=== PATIENT | female | born 1940 | race Caucasian/White ===

== ENCOUNTER 2022-02-11 07:23 | Emergency (ER) | payer MEDICARE ==
[~2022-02-11] VITALS: Ht 160 cm; Wt 62.3 kg
[~2022-02-11 07:23] MED LIST: DILT180C66 PO; ESTR10TA VG; HYDR25TA4 PO; MULT-1074 PO; POTASSIUM
--- NOTE | 2022-02-11 07:30 | NUR ---
Pt c/o pain in sacral area, rash to anterior R thigh, and frequent thirst.
[2022-02-11 08:21] LABS: CLARITY,URINE CLEAR (Clear); COLOR,URINE YELLOW (Yellow); GLUCOSE, URINE NEGATIVE (Neg); KETONES,URINE NEGATIVE (Neg); LEUKOCYTE ESTERASE ,URINE TRACE (Neg); NITRITES, URINE NEGATIVE (Neg); OCCULT BLOOD,URINE NEGATIVE (Neg); PH,URINE 6.5 (4.8-8.0); PROTEIN,URINE NEGATIVE (Neg); UA COLLECTION TYPE CLN CATCH MIDSTREAM; UROBILINOGEN,URINE 0.2 E.U/dL (0.2-1.0)
[2022-02-11 08:33] LABS: MUCUS STRANDS FEW /LPF (Neg); SQUAMOUS EPITHELIAL CELL,UR MODERATE /LPF (FEW)
[2022-02-11 08:35] LABS: BACTERIA,URINE FEW /HPF (Neg); RBC,URINE 0-2 /HPF (0-2); WBC,URINE 0-4 /HPF (0-4)
[2022-02-11 08:57] LABS: ALANINE AMINOTRANSFERASE 27 U/L (12-78); ALBUMIN 3.7 G/DL (3.4-5.0); ALKALINE PHOSPHATASE 71 IU/L (46-116); ANION GAP 10 (8-16); ASPARTATE AMINO TRANSFERASE 24 U/L (10-37); BASOPHILS % (AUTO) 0.4 % (0-1); BILIRUBIN,TOTAL 0.6 MG/DL (0.1-1.0); BLOOD UREA NITROGEN 13 MG/DL (7-18); CALCIUM 8.6 MG/DL (8.5-10.1); CHLORIDE 95 MMOL/L (99-107); CREATININE 0.81 MG/DL (0.40-0.90); EOSINOPHILS # (AUTO) 0.1 X10'3 (0-0.9); EOSINOPHILS % (AUTO) 1.4 % (0-6); GLUCOSE 153 MG/DL (70-104); HEMATOCRIT 39.3 % (35.0-45.0); HEMOGLOBIN 13.5 g/dl (12.0-16.0); LYMPHOCYTES # (AUTO) 0.5 X10'3 (1.1-4.8); LYMPHOCYTES % (AUTO) 6.5 % (21-51); MEAN CORPUSCULAR HEMOGLOBIN 30.6 PG (27.0-31.0); MEAN CORPUSCULAR HGB CONC 34.3 g/dL (33.0-36.5); MEAN PLATELET VOLUME 7.6 FL (7.4-10.4); MONOCYTES # (AUTO) 0.7 X10'3 (0-0.9); NEUTROPHILS % (AUTO) 82.7 % (42-75); PLATELET COUNT 284 X10'3 (140-440); POTASSIUM 3.5 MMOL/L (3.5-5.1); RED BLOOD COUNT 4.41 X10'6 (4.20-5.60); RED CELL DISTRIBUTION WIDTH 13.1 % (11.5-14.5); SODIUM 129 MMOL/L (135-145); TOTAL PROTEIN 7.4 G/DL (6.4-8.2); WHITE BLOOD COUNT 7.2 X10'3 (4.5-11.0); eGFR 68 ML/MIN
[2022-02-11 09:02] LABS: LIPASE 151 U/L (73-393)
[2022-02-11 10:01] VITALS: BP 145/77
[2022-02-11] MEDS ORDERED: PANT-47 PO (10:01)
--- NOTE | 2022-02-11 10:55 | NUR ---
Pt given and understands d/c instructions. Ambulatory with a steady gait. Daughter will drive pt home.
== END 2022-02-11 10:55 | disposition home or self-care (01) ==
LOC: ER 07:24
DX: I10 Essential (primary) hypertension (principal); R11.0 Nausea; R10.13 Epigastric pain; Z85.038 Personal history of other malignant neoplasm of large intestine; Z90.710 Acquired absence of both cervix and uterus; Z88.8 Allergy status to other drugs, medicaments and biological substances; Z79.899 Other long term (current) drug therapy
CPT/HCPCS: 36415; 71045; 80053; 81001; 82948; 83690; 84484; 85025; 87088; 93005; 99285